=== PATIENT | male | born 2000 ===

== ENCOUNTER 2024-06-16 12:50 | Observation (INO) | payer OTHER, SELFPAY ==
[2024-06-16] VITALS (9 sets, daily range): BP systolic 109–145; BP diastolic 62–101; BMI 39.1; BMI 38.1
--- NOTE | 2024-06-16 08:03 | ED.GENMED ---
History of Present Illness
General
Chief Complaint: Allergic Reaction
Time Seen by Provider: 06/16/24 08:03
History of Present Illness
History of Present Illness:
TIME OF INITIAL ENCOUNTER: 8:05 AM
HPI: Last night, around 7 PM, the mother heard him vomiting around the time he was playing video games. She went to check on him and found him laying on his belly vomiting and seemed somewhat altered. The patient does not have a recollection of
what happened at that time. He noted tongue swelling this morning and also notes bruising on the tongue. He has diffuse myalgias. He denies any benzo or alcohol use other than socially drinking 2 weekends ago. Mom states that when he vomits he
frequently has facial erythema. He denies any urinary incontinence. He is not on any statin or JUANITO inhibitor.
EXAM:
GENERAL: Appears somewhat weak and in mild distress
HEENT: There is ecchymosis noted to the right side of the tongue on both the dorsal and ventral aspect
CARDIOVASCULAR: No murmurs, normal heart rate, regular rhythm, No chest wall tenderness
PULMONARY: No respiratory distress, breath sounds are clear and equal
ABDOMEN: Soft with no peritoneal signs, no tenderness
NEUROLOGIC: Excellent strength all extremities, no coordination deficits
PSYCHIATRIC: Appropriate mental status, normal insight and judgement
EXTREMITIES: Nontender, no edema, moves all extremities equally
SKIN: Facial erythema
NUMBER AND COMPLEXITY OF PROBLEMS ADDRESSED AT THE ENCOUNTER
� Chronic conditions affecting care: No significant past medical history other than left knee arthroscopic repair.
� Acute Exacerbation and/or Progression of Chronic Illness: This is an acute problem
� Differential Diagnosis includes: Seizure, viral syndrome, electrolyte abnormality, angioedema, rhabdomyolysis
AMOUNT AND/OR COMPLEXITY OF DATA TO BE REVIEWED AND ANALYZED
� I performed an independent evaluation of and my interpretation is:
EKG:
CT: I personally reviewed CT imaging of the brain
X-rays:
Laboratory Studies: White count 11.2, hemoglobin 13.7, creatinine normal but CK over 4500
Other:
� Review of other/old records: No old records available for review in [facility]
� Clinical information was obtained by an independent historian: I spoke to mother at bedside
� Prescriptions/Medications Considered but not given:
� Further testing considered but not performed:
RISK OF COMPLICATIONS AND/OR MORBIDITY OR MORTALITY OF PATIENT MANAGEMENT
� Social determinants of health affecting care: Lives at home
� Discussion with other providers: I have asked Dr. Diaz, for admission, at 9:55 AM�planning admission to the hospital for rhabdomyolysis
� Escalation of care including admission/observation vs risk of discharge considered: CK markedly elevated, creatinine normal. I have ordered 2 L of fluid.
ANY OTHER UPDATES:
9:50 AM: The patient has some intermittent waves of nausea but declines Zofran
Phy Exam
Physical Exam
Physical Exam:
See HPI
Course
Orders/Labs/Results
Orders:
Orders
06/16/24 08:11
CT Head W/o Iv Contrast Urgent
Comment:
Reason For Exam: ?first time seizure
0.9% Sodium Chloride 1000 ml [Nss] 1,000 ml IV BOLUS
06/16/24 08:30
Complete Blood Count/With Diff Urgent
Comprehensive Metabolic Panel Urgent
Lipase Urgent
Total CK [Creatine Phosphokinase] Urgent
06/16/24 09:51
0.9% Sodium Chloride 1000 ml [Nss] 1,000 ml IV BOLUS
Abnormal Lab Results
06/16/24
08:30
WBC 11.2 H 10^3/uL
(4.8-10.8)
RBC 6.41 H 10^6/uL
(4.70-6.10)
MCV 67.9 L fL
(80.0-94.0)
MCH 21.4 L pg
(27.0-31.0)
MCHC 31.5 L g/dL
(33.0-37.0)
RDW 15.9 H %
(11.5-14.5)
Absolute Neuts (auto) 8.1 H 10^3/uL
(1.4-6.5)
Absolute Monos (auto) 1.0 H 10^3/uL
(0.1-0.6)
Lymphocytes % 16.2 L %
(20.5-51.1)
Glucose 101 H mg/dl
(70-99)
AST 77 H U/L
(17-59)
Creatine Kinase 4581 H U/L
(55-170)
06/16/24 08:30
06/16/24 08:30
Vital Signs
Initial and Last Documented VS:
Initial Vital Signs
Temp Pulse Resp BP Pulse Ox
98.1 F 89 18 143/88 96
06/16/24 07:54 06/16/24 07:54 06/16/24 07:54 06/16/24 07:54 06/16/24 07:54
Last Documented Vital Signs
Temp Pulse Resp BP Pulse Ox
98.1 F 64 17 109/62 97
06/16/24 07:54 06/16/24 10:00 06/16/24 10:00 06/16/24 10:00 06/16/24 10:00
*Critical Care Note
Total Time (30-74mins, 75-104mins- exclusive of procedures): Not Applicable
ED Attending Note
-
Portions of this chart may have been created with voice recognition software.� Occasional wrong word or��sound alike� substitutions may have occurred due to the inherent limitations of voice recognition software.
Discharge Plan
Departure
Patient Disposition: Admit
Date of Disposition: 06/16/24
Time of Disposition: 09:51
Presentation/result/management discussed w/ accepting MD/DO: Hospitalist
Discharge Problem:
Rhabdomyolysis
Prescriptions:
No Action
No Current Medications
0
Referrals:
Delano Palma MD [Family Provider] -
Interventions
Interventions:
*Risk Screen - Suicide Last Done: 06/16/24 07:54
*General Assessment Last Done: 06/16/24 07:54
*Neglect/Abuse Screening Last Done: 06/16/24 10:33
*ED COVID-19 Vaccine History Last Done: 06/16/24 07:54
Discharge Date and Time
Print Language: HONG KONGER
[2024-06-16] MEDS: NSS 1000 IV ×4 (08:29→21:24)
[2024-06-16 08:41] LABS: % Basophils 0.4 % (0-2); % Eosinophils 2.2 % (0-6); % Immature Granulocytes 0.3 % (0-0.5); % Lymphocytes 16.2 % (20.5-51.1); % Monocytes 9.1 % (1.7-9.3); % Neutrophils 71.8 % (42.2-75.2); Absolute Basophils 0.1 10^3/uL (0-0.2); Absolute Eosinophils 0.3 10^3/uL (0-0.7); Absolute Lymphocytes 1.8 10^3/uL (1.2-3.4); Absolute Neutrophils 8.1 10^3/uL (1.4-6.5); Hematocrit 43.5 % (39.0-52.0); Hemoglobin 13.7 g/dL (13.0-18.0); Mean Corp Hgb Conc. 31.5 g/dL (33.0-37.0); Mean Corpuscular Hgb 21.4 pg (27.0-31.0); Mean Corpuscular Volume 67.9 fL (80.0-94.0); Mean Platelet Volume 8.8 fL (7.4-10.4); Nucleated Red Blood Cells % 0 % (-); Platelet Count 290 10^3/uL (130-400); Red Blood Cell Count 6.41 10^6/uL (4.70-6.10); Red Cell Dist. Width 15.9 % (11.5-14.5); White Blood Cell Count 11.2 10^3/uL (4.8-10.8)
[2024-06-16 08:53] LABS: ALT (SGPT) 43 U/L (0-50); AST (SGOT) 77 U/L (17-59); Albumin 4.6 g/dl (3.5-5.0); Alkaline Phosphatase 50 U/L (38-126); Blood Urea Nitrogen 10 mg/dl (9-20); Calcium 9.2 mg/dl (8.4-10.2); Carbon Dioxide 27 mmol/L (22-30); Chloride 104 mmol/L (98-107); Glucose 101 mg/dl (70-99); Potassium 4.2 mmol/L (3.5-5.1); Sodium 142 mmol/L (135-145); Total Bilirubin 0.9 mg/dl (0.2-1.3); Total Protein 7.2 g/dl (6.3-8.2); eGFR > 60.00
[2024-06-16 09:35] LABS: Lipase 67 U/L (23-300)
[2024-06-16 09:44] LABS: Creatine Phosphokinase 4581 U/L (55-170)
[2024-06-16 11:25] LABS: Prolactin 13.4 ng/ml (3.7-17.9)
--- NOTE | 2024-06-16 12:27 | HPS.HSE ---
Family Physician
-
Family Physician: Delano Palma
Chief Complaint
-
24-year-old man presented with injury on his tongue and also possible seizures.
History of Present Illness
History obtained from patient and mom at bedside 24-year-old male stated that he did not have a good night sleep on 06/14/2024. Yesterday he was trying to go to sleep around 5 PM he felt nauseous and was dry heaving. His mom heard him from
upstairs and came downstairs and found that he was on the floor facedown and nauseous. He wanted to be left alone. She checked on him until 1 AM. She stated that when she came back he was in bed. Patient states that he woke up at 2 AM and he
found the injury on his tongue but did not want to come to the hospital therefore went back to sleep. This morning mom found that he had a rash on his face and also he had bit his tongue so she brought him to the hospital. Patient stated that he
also had some aches and pains. He did not work out. No fevers. Mother states that patient does have vomiting at times and break some blood vessels and bleeds on the face but this is worse than that.
Mother has a history of petit mall seizures and patient's and has grand mal seizure history. Patient has not had a seizure ever in his life.
Medical History
Past Medical History
Past Medical History: Reports None
Past Surgical History: Reports Other
Additional Past Surgical History:
Left meniscus and left ACL
Social History
Alcohol: Occasional
Drug: Marijuana (Twice a day)
Personal: Single
Living: With Family
Employment: Employed (Music industry)
Family History
Family History: Other (Mother and aunt with seizures)
Allergies / Home Medications
Allergies reflects when Allergies were last updated in [employer].
Home Medications with original date entered in [employer]
Allergy/Medication List:
Allergies
Allergy/AdvReac Type Severity Reaction Status Date / Time
No Known Allergies Allergy Verified 06/16/24 07:57
Home Medications
No Meds [No Current Medications] 06/16/24
Review of Systems
-
A 12 point ROS was completed and negative except as noted: Yes
EENT: Reports Other (Pain in the tongue and injury)
Cardiac: Denies Chest Pain
Abdomen/GI: Denies Abdominal Pain
Musculoskeletal: Reports Muscle Pain
Neurological: Denies Headache
Physical Exam
Vital Signs
Vital Signs
Temp Pulse Resp BP Pulse Ox
98.1 F 72 19 120/70 96
06/16/24 07:54 06/16/24 12:00 06/16/24 12:00 06/16/24 12:00 06/16/24 12:23
Physical Exam
General: No Apparent Distress
Respiratory: Clear
Cardiac: S1/S2 and Regular Rhythm
GI: Soft and Normal Bowel Sounds
Skin: Other (Face has been swollen and upper chest with small petechial lesions. Nothing on the abdomen or back)
Neuro: AO x 3 and Nonfocal/grossly intact
Psych: Intact Judgment/Insight
Laboratory Results
-
06/16/24 08:30
06/16/24 08:30
Laboratory Results
Total Bilirubin 0.9 mg/dl (0.2-1.3) 06/16/24 08:30
AST 77 U/L (17-59) H 06/16/24 08:30
ALT 43 U/L (0-50) 06/16/24 08:30
Alkaline Phosphatase 50 U/L (38-126) 06/16/24 08:30
Lipase 67 U/L (23-300) 06/16/24 08:30
Data Reviewed
-
CT Scan: Report Reviewed by me (No abnormality on CT head)
Medical Tests (Nuc Med, Echo, EKG etc): Image Personally Visualized and interpreted (Sinus rhythm, incomplete right bundle branch block)
Impression/Plan
-
IMPRESSION/PLAN:
# Patient likely had an episode of seizure given the scenario described by patient and family
Family history of seizures
Admit
Check EEG
MRI of the brain with and without contrast
Neurology evaluation
Seizure precautions
# Rash on the face-likely patient laying on face down and was also nauseous and trying to vomit likely capillary bleeding
# Rhabdomyolysis-IV fluids and follow CPK
# Incomplete right bundle branch block-routine echo
# Slightly elevated AST secondary to rhabdo
# Obesity with a BMI of 39-needs to lose weight
# DVT prophylaxis-SCDs
# Full code
Discussed with mom at bedside
Discussed with ER attending
--- NOTE | 2024-06-16 13:42 | CON.NEURO ---
Consultation
Order
Date of Consultation: 06/16/24
Requesting Provider: Williams Ontiveros MD
Reason for Consult: possible seizure
Neurology consultation note.
CC: none
HPI: this is a 24-year-old RH man who presented to [facility] on 06/16/2024 with tongue injury.
Patient states that he woke up at 2 AM today with sore and edematous tongue but did not want to come to the hospital therefore went back to sleep. This morning mom found that he had a rash on his face and also he had bit his tongue so she brought
him to the hospital.
Yesterday, his mother found him lying face down on the floor after hearing him vomit violently. Hernán typically experiences vomiting every 2 to 3 weeks, often in the morning or when hungry.
Hernán has a history of febrile seizures as a child, experiencing two episodes around the age of [age].
Hernán denies any recent medication initiation and reports using melatonin for sleep, which he has been taking for a couple of years. He consumes marijuana occasionally, about two to three grams, but not daily. He drinks alcohol on weekends,
preferring hard liquor, with the last consumption being two weeks ago. He denies current headaches, fever, diarrhea, tingling, numbness, shortness of breath, or cough. '
He has experienced concussions wo LOC while playing football.
ER VS: 143/88, 89, afebrile.
EKG: incomplete RBBB, QTc Int : 428 ms
PDMP:none
Labs: glucose�101, creatinine�1.2, CK 4581, normal Na, Ca, WBC�11.2, MCV�67.9, normal prolactin
CT head- choroid fissure, dural calcification adjacent to the inner table in the anterior left frontal paramidline.
PMH: febrile seizure, cannabis addiction, insomnia, BMI 38
PSH: left meniscus and left ACL
SH: single, lives wit mother; social ETOh and marijuana use, works in music industry
FH:mother-'petit mal seizures' from ages 6 to 13, treated initially with Dilantin and later with Tegretol; [id number], treated with Dilantin.
All:NKDA
ROS:Constitutional: Negative. Negative for chills, fever and unexpected weight change.
HENT: Negative for ear pain, hearing loss, tinnitus and trouble swallowing.
Eyes: Negative. Negative for photophobia, pain and visual disturbance.
Respiratory: Negative for cough, choking and shortness of breath.
Cardiovascular: Negative for chest pain, palpitations and leg swelling.
Gastrointestinal: positive for tongue pain, vomiting.
Endocrine: Negative. Negative for cold intolerance.
Genitourinary: Negative for dysuria, flank pain and urgency.
Musculoskeletal: Negative for back pain, gait problem, neck pain and neck stiffness.
Skin: Negative for rash.
Allergic/Immunologic: Negative. Negative for immunocompromised state.
Neurological: Negative for dizziness, tremors, seizures, speech difficulty, numbness and headaches.
Psychiatric/Behavioral: Negative for behavioral problems, confusion and hallucinations.
General: Well developed. In no acute distress.
Cardio: Regular rate and rhythm without murmur. Extremities are without cyanosis or edema.
Neuro:
Mental Status: Alert, oriented to person, place, and date. Normal attention and recall. Good fund of knowledge. Follows complex requests across the midline. Comprehension, naming, and repetition intact. Impaired delayed recall.
Cranial Nerves: Pupils are equally round and reactive to light. EOMs full. Visual ballard full to confrontation. No ptosis. No nystagmus. V1-V3 intact to light touch and pinprick bilaterally, symmetric. Face symmetric. Normal hearing AU. The
palate elevated well. SCMs and traps 5/5. Tongue midline. No dysarthria.
Motor: Normal bulk and tone. No pronator or arm drift. Strength 5/5 throughout. No clonus.
Reflexes: 2+ throughout the upper extremities and knees. Plantar responses flexor bilaterally.
Sensory: Normal pinprick, vibration and JPS.
Coordination: No dysmetria or tremor.
Gait: deferred
Assessment and Plan:
I. Seizure.
II. History of febrile seizure. Individuals with a history of simple febrile seizures have a 1 in 50 chance of developing epilepsy
III. Cannabis addiction
-Seizure precautions
-Brain MRI without gadolinium (epilepsy protocol)
-Routine EEG
-Will check magnesium, TSH, urine tox, ua
I personally reviewed all radiology and labs along with past medical records pertinent to current medical problems. Total time spent in patient care is 60 minutes.
Thank you for allowing us to participate in the care of this patient. We will continue to follow. Please do not hesitate to contact us with any questions or concerns.
Subjective/Objective
Subjective Data
Date of Service: June 16, 2024
Objective Data
Vital Signs
Temp Pulse Resp BP Pulse Ox
36.7 C 72 19 120/70 96
06/16/24 07:54 06/16/24 12:00 06/16/24 12:00 06/16/24 12:00 06/16/24 12:23
Lab Results
06/16/24 08:30
06/16/24 08:30
Sodium 142 mmol/L (135-145) 06/16/24 08:30
Potassium 4.2 mmol/L (3.5-5.1) 06/16/24 08:30
BUN 10 mg/dl (9-20) 06/16/24 08:30
Glucose 101 mg/dl (70-99) H 06/16/24 08:30
Calcium 9.2 mg/dl (8.4-10.2) 06/16/24 08:30
Patient Allergies
No Known Allergies Allergy (Verified 06/16/24 07:57)
Medications
-
Active Medications
Generic Name Dose Route Start Last Admin
Trade Name Freq PRN Reason Stop Dose Admin
Sodium Chloride 1,000 mls @ 150 mls/hr 06/16/24 12:30
Nss IV
.Q6H40M [facility]
Home Medications
�Medication �Instructions �Recorded
No Meds [No Current Medications] 06/16/24
Vital Signs and Labs
-
Vital Signs and Labs:
Vital Signs
Temp Pulse Resp BP Pulse Ox
36.7 C 72 19 120/70 96
06/16/24 07:54 06/16/24 12:00 06/16/24 12:00 06/16/24 12:00 06/16/24 12:23
Lab Results
06/16/24 08:30
06/16/24 08:30
Sodium 142 mmol/L (135-145) 06/16/24 08:30
Potassium 4.2 mmol/L (3.5-5.1) 06/16/24 08:30
BUN 10 mg/dl (9-20) 06/16/24 08:30
Glucose 101 mg/dl (70-99) H 06/16/24 08:30
Calcium 9.2 mg/dl (8.4-10.2) 06/16/24 08:30
Medications
-
Medications:
Generic Name Dose Route Start Last Admin
Trade Name Freq PRN Reason Stop Dose Admin
Sodium Chloride 1,000 mls @ 150 mls/hr 06/16/24 12:30
Nss IV
.Q6H40M [facility]
Home Medications
-
Home Medications
No Meds [No Current Medications] 06/16/24
[2024-06-16 14:50] LABS: Erythrocyte Sed Rate 8 mm/hour (0-20)
--- NOTE | 2024-06-16 16:14 | PTCARENOTE ---
Received pt from ER.Pt awake,alert and oriented x3. Pt has flat affect but cooperative with care. Pt NSR on tele. Pt VSS 96% on RA. Seizure precautions in place. Pt instructed to ring for assistance, verbalized understanding. Pt oriented to
room,call claudio within reach, mother as bedside, plan of care continues.
--- NOTE | 2024-06-16 16:16 | PTOTSP ---
Dysphagia Evaluation
Patient with mild oral stage differences and no signs of pharyngeal dysphagia s/p tongue bite from suspected seizure. Patient is appropriate to continue a regular, thin liquid diet with strategies below.
Recommend:
1. Regular, Thin Liquids
2. Strategies: pick soft/moist foods from menu, alternate sips/bites to assist with oral clearance, check for oral clearance
3. Medications - crushed in puree as needed
4. Oral care 2x daily
No further dysphagia therapy warranted. Please reconsult as appropriate.
[2024-06-16 16:25] LABS: TSH Reflex To Free T4 0.61 uIU/ml (0.47-4.68)
[2024-06-16 16:58] LABS: Amphetamines Negative (Negative); Barbiturates Negative (Negative); Benzodiazepines Negative (Negative); Buprenorphine Negative (Negative); Cocaine Negative (Negative); Marijuana Positive (Negative); Methadone Negative (Negative); Methamphetamines Negative (Negative); Opiates Negative (Negative); Phencyclidine Negative (Negative); Tricyclic Antidepressants Negative (Negative)
[2024-06-16 20:49] LABS: Urine Albumin Negative (Neg - Trace); Urine Bilirubin Negative (Negative); Urine Character Very Cloudy (Clear); Urine Color Yellow; Urine Glucose Negative (Negative); Urine Ketone Negative (Negative); Urine Leukocyte Negative (Negative); Urine Nitrite Negative (Negative); Urine Occult Blood Negative (Negative); Urine Urobilinogen Negative (Neg - 1+)
[2024-06-17 03:30] VITALS: BP 121/79
[2024-06-17] MEDS: NSS 1000 IV (05:09)
[2024-06-17 07:22] VITALS: BP 139/92
[2024-06-17 08:31] LABS: Hematocrit 40.6 % (39.0-52.0); Hemoglobin 12.8 g/dL (13.0-18.0); Mean Corp Hgb Conc. 31.5 g/dL (33.0-37.0); Mean Corpuscular Hgb 21.7 pg (27.0-31.0); Mean Corpuscular Volume 68.9 fL (80.0-94.0); Mean Platelet Volume 9.3 fL (7.4-10.4); Platelet Count 259 10^3/uL (130-400); Red Blood Cell Count 5.89 10^6/uL (4.70-6.10)
[2024-06-17 08:45] LABS: ALT (SGPT) 36 U/L (0-50); AST (SGOT) 77 U/L (17-59); Albumin 3.9 g/dl (3.5-5.0); Alkaline Phosphatase 47 U/L (38-126); Blood Urea Nitrogen 8 mg/dl (9-20); Calcium 8.4 mg/dl (8.4-10.2); Carbon Dioxide 26 mmol/L (22-30); Chloride 104 mmol/L (98-107); Estimated Creatinine Clearance > 125 ml/min; Glucose 78 mg/dl (70-99); Potassium 3.9 mmol/L (3.5-5.1); Sodium 140 mmol/L (135-145); Total Bilirubin 0.7 mg/dl (0.2-1.3); Total Protein 6.3 g/dl (6.3-8.2); eGFR > 60.00
[2024-06-17 09:01] LABS: Creatine Phosphokinase 3570 U/L (55-170)
[2024-06-17 11:20] VITALS: BP 142/84
[2024-06-17 11:30] VITALS: BP 134/87
--- NOTE | 2024-06-17 11:34 | W.PN.NEURO.1 ---
Today's Communication / Plan
-
.
Subjective/Objective
Subjective Data
Date of Service: June 17, 2024
Neurology follow-up note
Mr. Brooks reports no complaints. No reported or documented seizures since admission.
The patient has been febrile.
Routine EEG�no evidence of epileptiform abnormalities
Brain MRI�pending
Labs: CK�4581�3570, normal urinalysis urine tox�positive for cannabinoids.
PMH: febrile seizure, cannabis addiction, insomnia, BMI 38
PSH: left meniscus and left ACL
SH: single, lives wit mother; social ETOh and marijuana use, works in music industry
FH:mother-'petit mal seizures' from ages 6 to 13, treated initially with Dilantin and later with Tegretol; [id number], treated with Dilantin.
All:NKDA
ROS:Constitutional: Negative. Negative for chills, fever and unexpected weight change.
HENT: Negative for ear pain, hearing loss, tinnitus and trouble swallowing.
Eyes: Negative. Negative for photophobia, pain and visual disturbance.
Respiratory: Negative for cough, choking and shortness of breath.
Cardiovascular: Negative for chest pain, palpitations and leg swelling.
Gastrointestinal: positive for tongue pain, vomiting.
Endocrine: Negative. Negative for cold intolerance.
Genitourinary: Negative for dysuria, flank pain and urgency.
Musculoskeletal: Negative for back pain, gait problem, neck pain and neck stiffness.
Skin: Negative for rash.
Allergic/Immunologic: Negative. Negative for immunocompromised state.
Neurological: Negative for dizziness, tremors, seizures, speech difficulty, numbness and headaches.
Psychiatric/Behavioral: Negative for behavioral problems, confusion and hallucinations.
General: Well developed. In no acute distress.
Cardio: Regular rate and rhythm without murmur. Extremities are without cyanosis or edema.
Neuro:
Mental Status: Alert, oriented to person, place, and date. Normal attention and recall. Good fund of knowledge. Follows complex requests across the midline. Comprehension, naming, and repetition intact. Impaired delayed recall.
Cranial Nerves: Pupils are equally round and reactive to light. EOMs full. Visual ballard full to confrontation. No ptosis. No nystagmus. V1-V3 intact to light touch and pinprick bilaterally, symmetric. Face symmetric. Normal hearing AU. The
palate elevated well. SCMs and traps 5/5. Tongue midline. No dysarthria.
Motor: Normal bulk and tone. No pronator or arm drift. Strength 5/5 throughout. No clonus.
Reflexes: 2+ throughout the upper extremities and knees. Plantar responses flexor bilaterally.
Sensory: Normal pinprick, vibration and JPS.
Coordination: No dysmetria or tremor.
Gait: deferred
Assessment and Plan:
I. Unprovoked seizure. History of febrile seizure.
II. Cannabis addiction
III. Rhabdomyolysis
-Seizure precautions
-Please follow-up official brain MRI report
-Keppra load followed by 500 mg twice daily most common side effects most common side effects of Keppra were discussed with the patient and his mother
-Outpatient neurology follow-up in 1-2 weeks
- No driving for 6 months
-Please recall neurology service with any questions or concerns
I personally reviewed all radiology and labs along with past medical records pertinent to current medical problems. Total time spent in patient care is 40 minutes.
Thank you for allowing us to participate in the care of this patient. Please do not hesitate to contact us with any questions or concerns.
Objective Data
Vital Signs
Temp Pulse Resp BP Pulse Ox
36.4 C 84 20 142/84 97
06/17/24 11:20 06/17/24 11:20 06/17/24 11:20 06/17/24 11:20 06/17/24 11:20
Lab Results
06/17/24 08:15
06/17/24 06:51
Sodium 140 mmol/L (135-145) 06/17/24 06:51
Potassium 3.9 mmol/L (3.5-5.1) 06/17/24 06:51
BUN 8 mg/dl (9-20) L 06/17/24 06:51
Glucose 78 mg/dl (70-99) 06/17/24 06:51
Calcium 8.4 mg/dl (8.4-10.2) 06/17/24 06:51
Ur Buprenorphine Negative (Negative) 06/16/24 16:33
Patient Allergies
No Known Allergies Allergy (Verified 06/16/24 07:57)
Vital Signs and Labs
-
Vital Signs and Labs:
Vital Signs
Temp Pulse Resp BP Pulse Ox
36.4 C 84 20 142/84 97
06/17/24 11:20 06/17/24 11:20 06/17/24 11:20 06/17/24 11:20 06/17/24 11:20
Lab Results
06/17/24 08:15
06/17/24 06:51
Sodium 140 mmol/L (135-145) 06/17/24 06:51
Potassium 3.9 mmol/L (3.5-5.1) 06/17/24 06:51
BUN 8 mg/dl (9-20) L 06/17/24 06:51
Glucose 78 mg/dl (70-99) 06/17/24 06:51
Calcium 8.4 mg/dl (8.4-10.2) 06/17/24 06:51
Ur Buprenorphine Negative (Negative) 06/16/24 16:33
Medications
-
Medications:
Generic Name Dose Route Start Last Admin
Trade Name Freq PRN Reason Stop Dose Admin
Bisacodyl 10 mg 06/16/24 13:57
Bisacodyl 10 Mg Rectal Suppository RECTAL 07/14/24 13:56
H90DLES PRN
constipation
Sodium Chloride 1,000 mls @ 150 mls/hr 06/16/24 12:30 06/17/24 05:09
Nss IV 1,000 mls
.Q6H40M KENNETH Administration
Levetiracetam 1,000 mg 06/17/24 11:33
Levetiracetam (100 Mg/Ml) 500 Mg/5 Ml Vial IV 06/17/24 11:34
NOW STA
Levetiracetam 500 mg 06/17/24 20:00
Levetiracetam 500 Mg Regular Release Tablet PO 07/15/24 19:59
BID KENNETH
Polyethylene Glycol 17 grams 06/16/24 13:57
Polyethylene Glycol Powder 17 Grams Packet PO 07/14/24 13:56
DAILYPRN PRN
constipation
Senna/Docusate Sodium 1 tablet 06/16/24 13:57
Docusate W/Senna (Daiana-Colace) Tablet PO 07/14/24 13:56
BIDPRN PRN
constipation
Home Medications
-
Home Medications
No Meds [No Current Medications] 06/16/24
--- NOTE | 2024-06-17 11:35 | EEGC.RPT ---
Continuous EEG Report
Recording
Done with Video Recording: Yes
Electrocardiogram: Unremarkable
Report
TECHNICAL REMARKS: This is a technically satisfactory eighteen channel record employing 21 disc electrodes applied according to a measured international 10-20 electrode placement system. There were no significant technical difficulties. The study
was done on a [employer] System.
CLINICAL HISTORY: This is a 24-year-old man with a seizure. This study was requested to look for epileptiform abnormalities.
MEDICATION: no AED
STUDY DURATION: 29 min, 19 secs
REPORT: At the onset of the EEG, the patient is awake. The background activity consists of 11-11.5 Hz, persistent, posteriorly dominant, moderate amplitude, symmetric and rhythmic activity that is reactive to eye-opening. Anteriorly, it consists of
a mixture of low voltage indeterminate activity and 20-25 Hz, persistent, low amplitude, symmetric and rhythmic activity. Stepwise intermittent photic stimulation (1-31 Hz) does not induce any abnormalities. Hyperventilation was not performed.
Drowsiness is characterized by low amplitude mixed frequency activity, decreased eye blinking, and muscle artifact.
IMPRESSION: This is a normal awake and drowsy EEG. There is no evidence of focal slowing or epileptiform activity. A normal EEG does not rule out epilepsy. If the clinical picture warrants, a sleep-deprived awake and sleep record may be helpful.
[2024-06-17] MEDS: KEPPRA 1000 MG IV (11:48)
[2024-06-17 15:00] VITALS: BP 126/78
--- NOTE | 2024-06-17 15:59 | W.PN.HOSP.TC ---
Addendum entered and electronically signed by Williams Ontiveros MD 06/17/24 16:40:
Dictation- [id number]
Original Note:
Today's Communication/Plan
-
Leaving [facility]
Assessment / Plan
Assessment / Plan
feels well . Patient does not want to stay in the hospital he is going 'crazy.'
No more seizures
Rash better
CVS: S1-S2 normal
Chest: CTA B/L
Abdomen: Soft, NT
Extremities: No edema,
# Patient likely had an episode of seizure given the scenario described by patient and family
Family history of seizures
EEG neg
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 Outpatient follow-up discussed with patient and mom
Neurology evaluation appreciated
Patient and mom aware that patient should not to drive for 6 months
# Rash on the face-likely patient laying on face down and was also nauseous and trying to vomit likely capillary bleeding. Looks better
# Rhabdomyolysis-IV fluids and follow CPK CPK slightly better
# Incomplete right bundle branch block-routine echo unremarkable
# Slightly elevated AST secondary to rhabdo no right upper quadrant pain
# Marijuana use and vaping-needs to stop
# Obesity with a BMI of 39-needs to lose weight
# DVT prophylaxis-SCDs
# Full code
Patient wants to leave AMA. Detailed discussion with patient and mom at bedside. Rationale of staying here to treat rhabdo discussed with patient and mom. Patient still wants to go home. I printed out MRI, echo, EKG and labs for him to take to
PCP. Give a prescription for BMP and CPK to be done Friday with results to PCP. Sent a prescription for Keppra to his pharmacy. They are aware that they need to follow-up with neurology. Nursing provided neurology office phone number for them to
call. He was also advised to follow-up with PCP after discharge.
Discussed with nursing
Anticipated Discharge: 24 - 48 hours
Subjective/Interval History
-
Date of Service: June 17, 2024
Objective Data
-
Labs:
Laboratory Results
06/17/24 06/17/24
06:51 08:15
WBC 9.0
Hgb 12.8 L
Hct 40.6
Plt Count 259
Sodium 140
Potassium 3.9
Chloride 104
Carbon Dioxide 26
BUN 8 L
Creatinine 1.0
Glucose 78
Calcium 8.4
Total Bilirubin 0.7
AST 77 H
ALT 36
Alkaline Phosphatase 47
Vital Signs:
Vital Signs
Temp Pulse Resp BP Pulse Ox
98.3 F 72 16 126/78 96
06/17/24 15:00 06/17/24 15:00 06/17/24 15:00 06/17/24 15:00 06/17/24 15:00
I&O
06/16/24 06/17/24 06/18/24
06:59 06:59 06:59
Intake Total 1320 / 1320
Output Total 1150 / 1150
Balance 170 / 170
== END 2024-06-17 16:17 | disposition left against medical advice (07) ==
LOC: 4 EAST ACU 12:50
PROVIDERS: ADMITTING PHYSICIAN Hospitalist; CONSULT PHYSICIAN Psychiatry & Neurology Neurology; EMERGENCY PHYSICIAN Emergency Medicine; FAMILY PHYSICIAN Internal Medicine
DX: R56.00 Simple febrile convulsions (principal); R11.2 Nausea with vomiting, unspecified; R22.0 Localized swelling, mass and lump, head; S00.532A Contusion of oral cavity, initial encounter; M62.82 Rhabdomyolysis; R21 Rash and other nonspecific skin eruption; I45.10 Unspecified right bundle-branch block; R74.01 Elevation of levels of liver transaminase levels; E66.9 Obesity, unspecified; K13.79 Other lesions of oral mucosa; I49.8 Other specified cardiac arrhythmias; G93.0 Cerebral cysts; F12.20 Cannabis dependence, uncomplicated; G47.00 Insomnia, unspecified; Z68.39 Body mass index [BMI] 39.0-39.9, adult
CPT/HCPCS: 70450; 70551; 80053; 80306; 81003; 82550; 83690; 83735; 84146; 84443; 85025; 85027; 85652; 86140; 92610; 93005; 93306; 93970; 95816; 96360; 96361; 99285; G0378

== ENCOUNTER 2024-12-10 07:52 | Emergency (ER) | payer OTHER, SELFPAY ==
[2024-12-10 08:11] VITALS: BP 116/77
--- NOTE | 2024-12-10 08:46 | ED.GENMED ---
History of Present Illness
General
Chief Complaint: Chest Pain
Source: patient
Exam Limitations: none
Time Seen by Provider: 12/10/24 08:12
Nursing documentation reviewed up to this point in time: agreed with
History of Present Illness
History of Present Illness:
24-year-old male presenting to the emergency department today with concerns of an episode of chest pain upon awakening today he got up out of bed felt a central chest pain described as a achy throbbing heaviness last for about 12 seconds then went
away since and has had whole body tingling and generalized weakness and fatigue. Denies any ongoing chest pain no shortness of breath.
Review of Systems
Review of Systems
Allergies reviewed?: Yes
All Other Systems: ROS reviewed and negative except as documented in HPI and ROS
Phy Exam
Physical Exam
Physical Exam:
GENERAL: Alert , in no apparent distress
EYE: pupils equal and reactive
NECK: Supple, no significant adenopathy.
ENT: o/p clr, mmm.
CARDIAC: Regular rate and rhythm .
LUNGS: Clear breath sounds bilaterally, no acute respiratory distress, no wheezes/rales/rhonchi
ABDOMEN: Soft, without focal tenderness, no r/g, no cvat
NEUROLOGICAL: Alert and oriented, no focal neuro deficits
SKIN: Warm and dry, skin intact.
MUSCULOSKELETAL: No edema, well perfused.
PSYCH: Normal and appropriate interaction.
Scores
Heart Score for Chest Pain Patients
STEMI patient?: No
History: Slightly or Non-Suspicious
ECG: Normal
Age: </= 45 years
Risk Factors: No Risk Factors
Troponin: </= Normal Limit
Heart Score for Chest Pain Patients: 0
Heart Score Risk: 2.5% MACE over next 6 weeks
Course
Orders/Labs/Results
Orders:
Orders
12/10/24 08:00
Electrocardiogram (*1) Urgent
Reason for Study: Chest Pain
Cardiac Monitoring- Treatment ONCE
EKG- Treatment ONCE
12/10/24 08:21
Basic Metabolic Panel Urgent
Complete Blood Count/With Diff Urgent
Creatine Phosphokinase Urgent
Comment: ADD ON
Troponin I Urgent
12/10/24 08:25
Add On- LAB Urgent
Tests Added?: creatine kinase
Chest [CR Chest - 2 Views ] Urgent
Comment:
Reason For Exam: cp
12/10/24 09:56
Potassium Urgent
Abnormal Lab Results
12/10/24
08:21
Hgb 12.4 L g/dL
(13.0-18.0)
Hct 38.3 L %
(39.0-52.0)
MCV 68.2 L fL
(80.0-94.0)
MCH 22.1 L pg
(27.0-31.0)
MCHC 32.4 L g/dL
(33.0-37.0)
RDW 15.3 H %
(11.5-14.5)
Absolute Monos (auto) 0.8 H 10^3/uL
(0.1-0.6)
Glucose 156 H mg/dl
(70-99)
Creatine Kinase 319 H U/L
(55-170)
12/10/24 08:21
12/10/24 09:56
Vital Signs
Initial and Last Documented VS:
Initial Vital Signs
Temp Pulse Resp BP Pulse Ox
98.3 F 68 16 116/77 98
12/10/24 08:11 12/10/24 08:11 12/10/24 08:11 12/10/24 08:11 12/10/24 08:11
Last Documented Vital Signs
Temp Pulse Resp BP Pulse Ox
98.3 F 66 16 116/77 97
12/10/24 08:11 12/10/24 08:30 12/10/24 08:30 12/10/24 08:11 12/10/24 08:30
MDM/Problems Addressed
MDM/Problems Addressed:
24-year-old male presenting to the emergency department today with concerns of chest pain lasting about 12 seconds prior to arrival. Also now having body tingling. Vital signs normal on arrival normal heart lung examination. Labs imaging and EKG
without emergent issues. Stable throughout ER stay for multiple hours advised for close outpatient follow-up and otherwise stable for outpatient management. Return precautions given.
*Critical Care Note
Total Time (30-74mins, 75-104mins- exclusive of procedures): Not Applicable
ED Attending Note
-
Portions of this chart may have been created with voice recognition software.� Occasional wrong word or��sound alike� substitutions may have occurred due to the inherent limitations of voice recognition software.
Discharge Plan
Departure
Patient Disposition: Home (Routine Discharge)
Date of Disposition: 12/10/24
Time of Disposition: 10:26
Patient with high blood pressure during this ER visit?: No
Condition: Good
Covid-19: Not Applicable
Discharge Problem:
Chest pain
Instructions: Chest Pain PCP Follow Up
Prescriptions:
No Action
levetiracetam 500 mg Tablet
500 mg PO BID Qty: 60 0RF
Referrals:
UNKNOWN - PT NOT,INTERVIEWE [Family Provider] -
Activity Restrictions/Additional Instructions:
You came to the emergency department today with concerns of chest pain. Here you had a reassuring assessment. Please follow close with the primary care doctor. Return for any worsening, new or concerning symptoms.
Interventions
Interventions:
*Risk Screen - Suicide Last Done: 12/10/24 08:11
*General Assessment Last Done: 12/10/24 08:14
*Neglect/Abuse Screening Last Done: 12/10/24 08:11
*ED- Fall Risk Assessment Last Done: 12/10/24 08:55
*ED COVID-19 Vaccine History Last Done: 12/10/24 08:55
ED- Cardiac Assessment Last Done: 12/10/24 08:53
Discharge Date and Time
Print Language: IRAQI
[2024-12-10 08:51] LABS: Blood Urea Nitrogen 12 mg/dl (9-20); Carbon Dioxide 27 mmol/L (22-30); Chloride 106 mmol/L (98-107); Glucose 156 mg/dl (70-99); Sodium 140 mmol/L (135-145); eGFR > 60.00
[2024-12-10 08:52] LABS: % Basophils 0.5 % (0-2); % Eosinophils 4.1 % (0-6); % Immature Granulocytes 0.2 % (0-0.5); % Lymphocytes 28.3 % (20.5-51.1); % Monocytes 8.4 % (1.7-9.3); % Neutrophils 58.7 % (42.2-75.2); Absolute Basophils 0.1 10^3/uL (0-0.2); Absolute Eosinophils 0.4 10^3/uL (0-0.7); Absolute Lymphocytes 2.3 10^3/uL (1.2-3.4); Absolute Monocytes 0.8 10^3/uL (0.1-0.6); Absolute Neutrophils 5.4 10^3/uL (1.4-6.5); Calcium 8.4 mg/dl (8.4-10.2); Creatine Phosphokinase 319 U/L (55-170); Hematocrit 38.3 % (39.0-52.0); Hemoglobin 12.4 g/dL (13.0-18.0); Mean Corp Hgb Conc. 32.4 g/dL (33.0-37.0); Mean Corpuscular Hgb 22.1 pg (27.0-31.0); Mean Corpuscular Volume 68.2 fL (80.0-94.0); Mean Platelet Volume 9.6 fL (7.4-10.4); Nucleated Red Blood Cells % 0 % (-); Platelet Count 234 10^3/uL (130-400); Red Blood Cell Count 5.51 10^6/uL (4.70-6.10); Red Cell Dist. Width 15.3 % (11.5-14.5); White Blood Cell Count 9.3 10^3/uL (4.8-10.8)
[2024-12-10 08:56] LABS: Troponin I < 0.012 ng/ml
[2024-12-10 10:11] LABS: Potassium 3.8 mmol/L (3.5-5.1)
== END 2024-12-10 11:05 | disposition home or self-care (01) ==
LOC: EMR 07:52
PROVIDERS: Emergency Medicine; Physician Assistant; EMERGENCY PHYSICIAN Emergency Medicine
DX: R07.89 Other chest pain (principal)
CPT/HCPCS: 99283; 71046; 80048; 82550; 84132; 84484; 85025; 93005